=== PATIENT | female | born 1985 | race American Indian/Alaskan Native ===

== ENCOUNTER 2019-03-27 00:15 | Emergency (ER) | payer SELFPAY ==
[2019-03-27 00:25] VITALS: BP 126/74
[2019-03-27 01:25] LABS: Bilirubin,Urine NEG (Negative); Color,Urine Yellow (Yellow)
[2019-03-27 01:26] LABS: Blood,Urine LG (Negative); Mucus,Urine 3+ /HPF; Protein,Urine <15 mg/dL mg/dL (Negative); Urobilinogen,Urine < 2.0 mg/dL (<2.0)
== END 2019-03-27 02:21 | disposition left against medical advice (07) ==
LOC: ED 00:15
DX: O20.8 Other hemorrhage in early pregnancy (principal); Z53.21 Procedure and treatment not carried out due to patient leaving prior to being seen by health care provider
CPT/HCPCS: 81001

== ENCOUNTER 2019-07-20 13:36 | Emergency (ER) | payer SELFPAY ==
[2019-07-20 13:49] VITALS: BP 110/76
[2019-07-20] MEDS ORDERED: BUPIVACAINE/PF (0.25%) 2.5 MG/ML 30 ML VIAL INFILTRATI ONE (14:29)
[2019-07-20] MEDS ORDERED: HYDROcodone/ACETAMINOPHEN 7.5-325MG TAB PO ONE (14:29)
[2019-07-20] MEDS ORDERED: LIDOCAINE-MPF (1%) 10 MG/1 ML VIAL 5 ML INFILTRATI ONE (14:29)
[2019-07-20] MEDS ORDERED: BUPIVACAINE/PF (0.5%) 5 MG/1 ML 10 ML VIAL INFILTRATI ONE ×2 (14:49→15:02)
--- NOTE | 2019-07-20 16:02 | Emergency Department Report ---
- General Chief Complaint: Extremity Injury, Upper Stated Complaint: LFT HAND LAC/PAIN Time Seen by Provider: 07/20/19 14:08 Source: patient Mode of arrival: Ambulatory Limitations: No Limitations - History of Present Illness Initial Comments: Patient is a 33-year-old female presents emergency room with complaints of a laceration to the left ring finger that occurred just prior to arrival. Patient states that she was getting out of the car and that the panel is missing from the passenger door and she accidentally cut her finger against a metal piece of the inside of the car door. She she denies crushing the finger. She is still able to move the finger. She denies any numbness or weakness. She states her tetanus shot is up-to-date. She denies any past medical history or allergies to medications. - Related Data Previous Rx's Medication Instructions Recorded Last Taken Type Fluconazole [Diflucan TAB] 150 mg PO ONCE #1 tablet 07/20/19 Unknown Rx cephALEXin [Keflex] 500 mg PO QID 7 Days #28 cap 07/20/19 Unknown Rx Allergies Allergy/AdvReac Type Severity Reaction Status Date / Time No Known Allergies Allergy Verified 07/20/19 13:39 ED Review of Systems ROS: Stated complaint: LFT HAND LAC/PAIN Other details as noted in HPI Comment: All other systems reviewed and negative ED Past Medical Hx - Past Medical History Previous Medical History?: No - Surgical History Past Surgical History?: No - Social History Smoking Status: Never Smoker Substance Use Type: None - Medications Home Medications: Home Medications Medication Instructions Recorded Confirmed Last Taken Type Fluconazole [Diflucan TAB] 150 mg PO ONCE #1 tablet 07/20/19 Unknown Rx cephALEXin [Keflex] 500 mg PO QID 7 Days #28 cap 07/20/19 Unknown Rx ED Physical Exam - General Limitations: No Limitations General appearance: alert, in no apparent distress - Head Head exam: Present: atraumatic, normocephalic - Eye Eye exam: Present: normal appearance - ENT ENT exam: Present: mucous membranes moist - Extremities Exam Extremities exam: Present: other (3cm laceration present to the palmar surface of the left index finger, bleeding is controlled by dressing that was placed by triage, upon removal of dressing bleeding remains controlled, no visualized foreign body, no muscle or tendon invovlement, FROM of the digits and left hand, neurovascularly intact) - Neurological Exam Neurological exam: Present: alert, oriented X3 - Psychiatric Psychiatric exam: Present: normal affect, normal mood - Skin Skin exam: Present: warm, dry ED Course Vital Signs 07/20/19 13:47 Temperature 98.2 F Pulse Rate 93 H Respiratory 18 Rate Blood Pressure 110/76 O2 Sat by Pulse 100 Oximetry - Laceration /Wound Repair Left Palm Finger Wound Location: upper extremity (palmar surface of the left ring finger) Wound Length (cm): 3 Wound's Depth, Shape: superficial Wound Explored: clean Irrigated w/ Saline (ccs): 500 Betadine Prep?: Yes Anesthesia: 1% Lidocaine, 0.5% Sensorcaine Volume Anesthetic (ccs): 6 Wound Debrided: moderate Wound Repaired With: sutures Suture Size/Type: 5:0, proline Number of Sutures: 7 Layer Closure?: No Sterile Dressing Applied?: Yes Progress: Wound irrigated with saline and thoroughly scrubbed with Betadine, digital block performed with 6 cc of 50-50 mix of 1% lidocaine without epinephrine and 0.5% bupivacaine without epinephrine, Betadine prep again, sterile drapes applied, sterile gloves worn, 5-0 Prolene used for skin closure, 7 sutures placed, no foreign body upon exploration, no muscle or tendon involvement, patient tolerated well, no complications, bleeding controlled, sterile dressing applied ED Medical Decision Making - Medical Decision Making Patient is a 33-year-old female presents emergency room with complaints of a laceration to the left ring finger that occurred just prior to arrival. Patient states that she was getting out of the car and that the panel is missing from the passenger door and she accidentally cut her finger against a metal piece of the inside of the car door. She she denies crushing the finger. She is still able to move the finger. She denies any numbness or weakness. She states her tetanus shot is up-to-date. She denies any past medical history or allergies to medications. VSS. on exam: 3cm laceration present to the palmar surface of the left index finger, bleeding is controlled by dressing that was placed by triage, upon removal of dressing bleeding remains controlled, no visualized foreign body, no muscle or tendon invovlement, FROM of the digits and left hand, neurovascularly intact. Wound irrigated with saline and thoroughly scrubbed with Betadine and repaired per procedure note. Patient given prescription for Keflex. She asked if she could have a prescription for Diflucan because antibiotics give her a yeast infection. Advised patient Please take medication as prescribed. May take Tylenol or ibuprofen as needed for discomfort. Please keep area clean, dry, covered. May wash with soap and water and immediately dry. No hot tub, no pool, no soaking in water. Sutures need to be removed in 10 days. Follow-up with a primary care doctor for reexamination. Return to the emergency room for any new or worsening symptoms or any worsening signs of infection despite antibiotic therapy. Critical care attestation.: If time is entered above; I have spent that time in minutes in the direct care of this critically ill patient, excluding procedure time. ED Disposition Clinical Impression: Laceration of left ring finger Qualifiers: Encounter type: initial encounter Damage to nail status: without damage Foreign body presence: without foreign body Qualified Code(s): S61.215A - Laceration without foreign body of left ring finger without damage to nail, initial encount er Disposition: TO HOME OR SELFCARE Is pt being admited?: No Does the pt Need Aspirin: No Condition: Stable Instructions: Suture Care (ED), Laceration (ED) Additional Instructions: Please take medication as prescribed. May take Tylenol or ibuprofen as needed for discomfort. Please keep area clean, dry, covered. May wash with soap and water and immediately dry. No hot tub, no pool, no soaking in water. Sutures need to be removed in 10 days. Follow-up with a primary care doctor for reexamination. Return to the emergency room for any new or worsening symptoms or any worsening signs of infection despite antibiotic therapy. Prescriptions: Fluconazole [Diflucan TAB] 150 mg PO ONCE #1 tablet cephALEXin [Keflex] 500 mg PO QID 7 Days #28 cap Referrals: SHERIF COURTNEY MD [Staff Physician] - 3-5 Days [facility] [Provider Group] - 3-5 Days Time of Disposition: 16:02 Print Language: SYRIAN
== END 2019-07-20 16:51 | disposition home or self-care (01) ==
LOC: ED 13:36
DX: S61.215A Laceration without foreign body of left ring finger without damage to nail, initial encounter (principal); Z79.899 Other long term (current) drug therapy; W26.8XXA Contact with other sharp object(s), not elsewhere classified, initial encounter; Y93.89 Activity, other specified; Y92.89 Other specified places as the place of occurrence of the external cause; Y99.8 Other external cause status